=== PATIENT | female | born 1940 | race Caucasian/White ===

== ENCOUNTER 2018-04-17 11:18 | Emergency (ER) | payer OTHER ==
[~2018-04-17] VITALS: Ht 160 cm; Wt 80.0 kg
[2018-04-17 11:22] VITALS: Ht 160 cm; Wt 80.0 kg
[2018-04-17] MEDS ORDERED: SODIUM CHLORIDE 0.9% 1L BAG IV* STA (11:26)
[2018-04-17] MEDS ORDERED: ACET325T45 PO (11:54)
[2018-04-17] MEDS ORDERED: APIX2.5T PO (11:55)
[2018-04-17] MEDS ORDERED: ATOR20TA38 PO (11:55)
[2018-04-17] MEDS ORDERED: CALC300T4 PO (11:55)
[2018-04-17] MEDS ORDERED: GABA100C14 PO (11:56)
[2018-04-17] MEDS ORDERED: VIT1TABL46 PO (11:56)
[2018-04-17] MEDS ORDERED: CETI10CA PO (11:56)
[2018-04-17] MEDS ORDERED: METO25TA4 PO (11:57)
[2018-04-17] MEDS ORDERED: DIGO125T93 PO (11:57)
[2018-04-17] MEDS ORDERED: CEFEPIME 2GM/50 ML (PMX) 50 ML IVPB STA (12:34)
[2018-04-17] MEDS ORDERED: VANCOMYCIN 1 GM (PMX) 250 ML IVPB ONE (13:00)
--- NOTE | 2018-04-17 13:17 | ERD ---
ER Documentation Chief Complaint Chief Complaint BIB RA 81 FOR EVAL OF SOB. 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 The patient denies chest pain. The patient is due for dialysis today at 3:30 PM and usually gets dialysis Sunday, Sunday, and Sunday. The patient had palpitations yesterday but started this morning with cough with positive phlegm. It started at 5 AM. The patient has no fevers. The patient's primary doctor is at [facility]. Upon review of old medical records this is the patient's first visit to the emergency department. ROS All systems reviewed and are negative except as per history of present illness. Medications Home Meds Reported Medications Digoxin* (Lanoxin*) 0.125 Mg Tablet, 0.125 MG PO Q48H, TAB 04/17/18 Metoprolol Tartrate* (Lopressor*) 25 Mg Tablet, 25 MG PO BID, #60 TAB 04/17/18 Vitamin B Complex* (Vitamin B Complex*) 1 Each Tablet, 1 TAB PO DAILY, TAB 04/17/18 Gabapentin* (Gabapentin*) 100 Mg Capsule, 100 MG PO QHS, #90 CAP 04/17/18 Cetirizine Hcl* (Zyrtec*) 10 Mg Capsule, 10 MG PO DAILY, TAB 04/17/18 Calcium Carbonate* (Tums X-Str) 300 Mg Tab.chew, 300 MG PO TID, TAB.CHEW 04/17/18 Atorvastatin Calcium* (Atorvastatin Calcium*) 20 Mg Tablet, 20 MG PO QHS, #30 TAB 04/17/18 Apixaban* (Eliquis*) 2.5 Mg Tablet, 2.5 MG PO BID, TAB 04/17/18 Acetaminophen* (Acetaminophen*) 325 Mg Tablet, 325 MG PO Q8 PRN for PAIN AND OR ELEVATED TEMP, #30 TAB 04/17/18 Allergies Allergies: Coded Allergies: No Known Allergy (Unverified , 04/17/18) PMhx/Soc History of Surgery: Yes (LEFT AV FISTULA) Anesthesia Reaction: No Hx Neurological Disorder: No Hx Respiratory Disorders: Yes (ASTHMA) Hx Cardiac Disorders: Yes (A-FIB, HTN, HLD) Hx Psychiatric Problems: No Hx Miscellaneous Medical Probl: Yes (RENAL FAILURE, DM TYPE II) Hx Alcohol Use: No Hx Substance Use: No Hx Tobacco Use: No Smoking Status: Never smoker FmHx Family History: diabetes Physical Exam Vitals Vital Signs Date Temp Pulse Resp B/P (MAP) Pulse Ox O2 O2 Flow FiO2 Time Delivery Rate 04/17/18 83 17 184/70 100 Nasal 4.0 12:55 (108) Cannula 04/17/18 Nasal 4 11:30 Cannula 04/17/18 Nasal 4.0 11:30 Cannula 04/17/18 98.2 70 20 138/125 98 11:22 (129) Physical Exam Const: Moderate distress Head: Atraumatic Eyes: Normal Conjunctiva ENT: Normal External Ears, Nose and Mouth. Neck: Full range of motion. No meningismus. Resp: Decreased breath sounds bilaterally Cardio: Regular rate and rhythm, no murmurs Abd: Soft, non tender, non distended. Normal bowel sounds Skin: No petechiae or rashes Back: No midline or flank tenderness Ext: No cyanosis, or edema Neur: Awake and alert Psych: Normal Mood and Affect Result Diagram: 04/17/18 1159 04/17/18 1159 Results 24 hrs Laboratory Tests Test 04/17/18 11:52 04/17/18 11:59 POC Venous Lactate 2.3 mmol/L White Blood Count 11.7 10^3/ul Red Blood Count 3.13 10^6/ul Hemoglobin 9.6 g/dl Hematocrit 30.2 % Mean Corpuscular Volume 96.5 fl Mean Corpuscular Hemoglobin 30.7 pg Mean Corpuscular Hemoglobin Concent 31.8 g/dl Red Cell Distribution Width 12.6 % Platelet Count 190 10^3/UL Mean Platelet Volume 11.0 fl Immature Granulocytes % 0.600 % Neutrophils % 76.7 % Lymphocytes % 10.7 % Monocytes % 10.6 % Eosinophils % 1.1 % Basophils % 0.3 % Nucleated Red Blood Cells % 0.0 /100WBC Immature Granulocytes # 0.070 10^3/ul Neutrophils # 9.0 10^3/ul Lymphocytes # 1.3 10^3/ul Monocytes # 1.2 10^3/ul Eosinophils # 0.1 10^3/ul Basophils # 0.0 10^3/ul Nucleated Red Blood Cells # 0.0 10^3/ul Prothrombin Time 14.9 Sec Prothrombin Time Ratio 1.2 INR International Normalized Ratio 1.16 Activated Partial Thromboplast Time 36.5 Sec Sodium Level 136 mmol/L Potassium Level 4.6 mmol/L Chloride Level 88 mmol/L Carbon Dioxide Level 37 mmol/L Anion Gap 11 Blood Urea Nitrogen 34 mg/dl Creatinine 7.03 mg/dl Est Glomerular Filtrat Rate mL/min mL/min Glucose Level 188 mg/dl Calcium Level 8.0 mg/dl Troponin I 0.050 ng/ml Digoxin Level 1.1 ng/ml Current Medications Medications Dose Sig/Kiana Start Time Status Last (Trade) Ordered Route PRN Stop Time Admin Dose Reason Admin Sodium 2,400 ml BOLUS OVER 2 04/17/18 DC Chloride HOURS STAT 11:26 04/17/18 (NS) IV* 11:36 Cefepime HCl 50 ml @ ONCE STAT 04/17/18 DC 04/17/18 100 mls/hr IVPB 12:34 04/17/18 12:52 13:03 Vancomycin 250 ml @ ONCE ONCE 04/17/18 HCl 125 mls/hr IVPB 13:00 04/17/18 14:59 Procedures/MDM EKG read by me: Rate/Rhythm: Regular rate and rhythm at a normal rate Intervals: Normal Impression: No evidence of ischemia or arrhythmia Chest x-ray shows pneumonia per radiology. Sepsis Documentation: Patient's infectious symptoms have not stabilized and the patient is at risk of rapid decompensation. The patient will be admitted for careful hydration, antibiotic therapy, and infectious source control. SEVERE SEPSIS CRITERIA: Infectious source: Pneumonia End organ damage indicated by: Lactate greater than 2 SEPSIS MANAGEMENT Time of recognition of sepsis: 11:52 AM. Time of recognition of severe sepsis: 11:52 AM. Time of recognition of septic shock: No septic shock at this time. 3 HOUR BUNDLE Blood cultures x 2 before broad-spectrum antibiotics: Yes 30 ml/kg NS bolus not given as the patient is a dialysis patient and I was concerned about fluid overload Initial lactate 2.3 Repeat lactate pending SEPTIC SHOCK ASSESSMENT: No lactic acid > 4.0 No persistent hypotension (SBP < 90 or 40 mmHg drop, MAP < 65) despite 30 mL/kg IV fluid bolus VOLUME REASSESSMENT FOR SEPTIC SHOCK: No septic shock at this time PERSISTENT HYPOTENSION TREATMENT: Comfort care no Central line not Required Vasopressor started not required I considered further perfusion assessment with CVP measurement, SCVO2, bedside ultrasound volume assessment, passive leg raise, trial of further fluid bolus. And proceeded with broad-spectrum antibiotics with vancomycin and cefepime and transferred to [facility] for continuity of care. The patient was accepted by Dr. Cardenas from [facility]. CRITICAL CARE Critical care time 35 minutes Emergent fluid management while maintaining close respiratory support. Provision of immediate and broad-spectrum antibiotic therapy. Simultaneous assessment for possible sources in order to direct targeted therapy. Consideration for invasive and chemical support to prevent cardiopulmonary collapse. Critical care time is independent of procedures performed. Departure Diagnosis: Primary Impression: PNA (pneumonia) Pneumonia type: due to unspecified organism Laterality: bilateral Lung location: unspecified part of lung Qualified Codes: J18.9 - Pneumonia, unspecified organism Additional Impressions: Shortness of breath Severe sepsis Condition: Serious EMERY RODRIGUEZ MD Apr 17, 2018 13:17
[2018-04-17 14:00] VITALS: BP 148/61; PULSE 72; RESP 17
== END 2018-04-17 14:00 | disposition short-term general hospital (02) ==
LOC: E/R 11:18
DX: J18.9 Pneumonia, unspecified organism (principal); R65.20 Severe sepsis without septic shock; A41.9 Sepsis, unspecified organism; J45.909 Unspecified asthma, uncomplicated; I10 Essential (primary) hypertension; E11.9 Type 2 diabetes mellitus without complications; Z79.01 Long term (current) use of anticoagulants
CPT/HCPCS: 36415; 71045; 80048; 80162; 83605; 84484; 85025; 85610; 85730; 87040; 87400; 93005; 96374; 99291; J0692; J7030